=== PATIENT | female | born 1960 | race Two or more races ===

== ENCOUNTER 2020-03-03 16:42 | Emergency (ER) | payer SELFPAY ==
[~2020-03-03] VITALS: Ht 160 cm; Wt 55.0 kg
[2020-03-03 16:50] VITALS: BP 166/81
--- NOTE | 2020-03-03 17:55 | RAD ---
Exam performed: One view chest. Indication: Reason: cough / Spl. Instructions: / History: Date of Service: 03/03/2020 5:18 PM Comparison: None available none available. Single AP upright portable view chest findings: Cardiomediastinal silhouette is within limits of normal. No acute infiltrates, effusion or pneumothorax is detected. The bony structures are normal. Impression: No acute cardiopulmonary process is detected. Electronically signed by: Dora Gong MD (03/03/2020 5:52 PM) [facility]
--- NOTE | 2020-03-03 18:11 | PHYS DOC ---
Past Medical History Past Medical History: Asthma, Hypothyroid Past Surgical History: Appendectomy, Hysterectomy Smoking Status: Never Smoker Alcohol Use: None General Adult EDM: Chief Complaint: ASTHMA HPI: HPI: 60 yo F PMH asthma and hypothyroidism is the ED with her son with complaints of worsening shortness of breath, wheezing, nonproductive cough and chest tightness for the past 4 days. Has used her albuterol inhaler 6 times in the past week. Moved here from [place] a year and a half ago. States she was around bleach earlier today and thinks that worsened her asthma. Last except asthma exacerbation was 3 months ago that required steroids, no hospitalization. Is never been intubated. Is not a smoker. On no home oxygen. Only takes albuterol, no steroid inhaler. Is requesting medication refill. Tested for covid 3 weeks ag o. ROS: No associated fever, chills, leg swelling, rash, hemoptysis, chest pain, n/v/d/c, back pain, joint pain, headache, neck stiffness, syncope. Review of Systems: Review of Systems: Constitutional: Denies fever or chills. [] Eyes: Denies change in visual acuity. [] HENT: Denies nasal congestion or sore throat. [] Cardiovascular: Denies edema. [] GI: Denies abdominal pain, nausea, vomiting, bloody stools or diarrhea. [] : Denies dysuria. [] Musculoskeletal: Denies back pain or joint pain. [] Integument: Denies rash. [] Neurologic: Denies headache, focal weakness or sensory changes. [] Endocrine: Denies polyuria or polydipsia. [] Lymphatic: Denies swollen glands. [] Psychiatric: Denies depression or anxiety. [] Heart Score: Risk Factors: Risk Factors: DM, Current or recent (<one month) smoker, HTN, HLP, family history of CAD, obesity. Risk Scores: Score 0 - 3: 2.5% MACE over next 6 weeks - Discharge Home Score 4 - 6: 20.3% MACE over next 6 weeks - Admit for Clinical Observation Score 7 - 10: 72.7% MACE over next 6 weeks - Early Invasive Strategies Allergies: Allergies: Allergies Coded Allergies Type Severity Reaction Last Updated Verified cefazolin Allergy Severe 03/03/20 Yes shrimp Allergy Unknown 03/03/20 Yes Physical Exam: PE: Constitutional: Well developed, well nourished, no acute distress, non-toxic appearance. [] HENT: Normocephalic, atraumatic, bilateral external ears normal, oropharynx moist, no oral exudates, nose normal. [] Eyes: EOMI, conjunctiva normal, no discharge. [] Neck: Normal range of motion, no tenderness, supple, no stridor. [] Cardiovascular:Heart rate regular rhythm, no murmur [] Lungs & Thorax: Bilateral breath sounds equal, some expiratory wheezing, speaking in full sentences, 100% ra, no tachypnea or stridor Abdomen: Bowel sounds normal, soft, no tenderness, no masses, no pulsatile masses. [] Skin: Warm, dry, no erythema, no rash. [] Back: No tenderness, no CVA tenderness. [] Extremities: No tenderness, no cyanosis, no clubbing, ROM intact, no edema. [] Neurologic: Alert and oriented X 3, normal motor function, normal sensory function, no focal deficits noted. [] Psychologic: Affect normal, judgement normal, mood normal. [] Current Patient Data: Vital Signs: Vital Signs Date Time Temp Pulse Resp B/P (MAP) Pulse Ox O2 Delivery O2 Flow Rate FiO2 03/03/20 16:50 98.7 95 16 166/81 (109) 95 Room Air 98.7 EKG: EKG: [] Radiology/Procedures: Radiology/Procedures: IMAGING REPORT Signed PATIENT: BRAEDEN ONEALACCOUNT: [id number] : 1960 LOCATION: ER AGE: 60 SEX: F EXAM STATUS: REG ER ORD. PHYSICIAN: LATIA MCKNIGHT DO REASON: cough PROCEDURE: CHEST AP ONLY Exam performed: One view chest. Indication: Reason: cough / Spl. Instructions: / History: Date of Service: 03/03/2020 5:18 PM Comparison: None available none available. Single AP upright portable view chest findings: Cardiomediastinal silhouette is within limits of normal. No acute infiltrates, effusion or pneumothorax is detected. The bony structures are normal. Impression: No acute cardiopulmonary process is detected. Electronically signed by: Dora Gong MD (03/03/2020 5:52 PM) [facility] DICTATED and SIGNED BY: DORA GONG MD DATE: 03/03/20 3809 Course & Med Decision Making: Course & Med Decision Making Pertinent Labs and Imaging studies reviewed. (See chart for details) Concern for mild asthma exacerbation, requesting medication refill. Will prescribe prednisone for 5 days, albuterol as needed and Flovent for the next 30 days. Strict ED return precautions were given for increased work of breathing, accessory muscle use or requiring albuterol every 2 hours. Encouraged urgent outpatient follow-up with PMD and pulmonology. Life-threatening processes were considered but are low suspicion at this time, given history and physical exam. Pt was educated on all prescription medications and adverse effects. All patient's questions were answered and pt was stable at time of discharge. Differential includes acute myocardial infarction, aortic dissection, congestive heart failure, esophageal injury including rupture, surgical abdomen, arrhyt hmia, cardiomyopathy, myocarditis, pericarditis, peptic ulcer disease, pneumomediastinum, pneumonia, pneumothorax, pulmonary embolus, unstable angina, rib fracture, contusion, pericardial tamponade or effusion, pulmonary contusion I spoken with the patient and her caregivers. I explained the patient's condition, diagnoses and treatment plan based on the information available to me at this time. I have answered the patient and her caregiver's questions and addressed any concerns. The patient and her caregivers have a good understanding of patient's diagnosis, condition and treatment plan as can be expected at this point. Vital signs have been stable. Patient's condition is stable and appropriate for discharge from the emergency department. Patient will pursue further outpatient evaluation with primary care physician or other designated or consulting physician as outlined in the discharge instructions. The patient and/or caregivers are agreeable to this plan of care and follow-up instructions have been explained in detail. The patient and/or caregivers have received these instructions in written form and have expressed an understanding of the discharge instructions. The patient and/or caregivers are aware that any significant change of condition or worsening of symptoms should prompt immediate return to this or the closest emergency department or call to 911. Wilmer Disclaimer: Wilmer Disclaimer: This electronic medical record was generated, in whole or in part, using a voice recognition dictation system. Departure Departure Impression: Primary Impression: Asthma Additional Impression: Encounter for medication refill Disposition: HOME, SELF-CARE Condition: STABLE Referrals: NO PCP (PCP) Patient Instructions: Asthma Prevention-Brief, Asthma, Adult Additional Instructions: Mireya Norwood MD Family Medicine Address: [address], [address] [place] [address] Waldo Flood MD [facility] Address: [address] [place] [address] Scripts Albuterol Sulfate (VENTOLIN HFA INHALER) 18 Gm Hfa.aer.ad 2 PUFF INH QID PRN for WHEEZING, #1 INHALER 0 Refills Prov: LATIA MCKNIGHT DO 03/03/20 Fluticasone Propionate (FLOVENT 44MCG HFA) 10.6 Gm Aer.w.adap 2 PUFF IH BID for 30 Days, #10.6 GM 2 Refills Prov: LATIA MCKNIGHT DO 03/03/20 Albuterol Sulfate (ALBUTEROL SULFATE NEB SOLN) 2.5 Mg/3 Ml Vial.neb 1 VIAL NEB Q6HRS PRN for SHORTNESS OF BREATH, #25 VIAL Prov: LATIA MCKNIGHT DO 03/03/20 Prednisone (PREDNISONE) 20 Mg Tablet 2 TAB PO DAILY for 5 Days, #10 TAB Prov: LATIA MCKNIGHT DO 03/03/20 Justicifation of Admission Dx: Justifications for Admission: Justification of Admission Dx: N/A LATIA MCKNIGHT DO Mar 03, 2020 18:11
[2020-03-03] MEDS ORDERED: PRED20TA PO (18:15)
[2020-03-03] MEDS ORDERED: FLUT10.6 IH (18:15)
[2020-03-03] MEDS ORDERED: ALBU2.5V5 NEB (18:15)
[2020-03-03] MEDS ORDERED: VENTOLIN HFA18 GM INH (18:15)
== END 2020-03-03 18:20 | disposition home or self-care (01) ==
LOC: ER 16:42
DX: J45.909 Unspecified asthma, uncomplicated (principal); R06.02 Shortness of breath; R05 Cough; R07.89 Other chest pain; E03.9 Hypothyroidism, unspecified; Z90.89 Acquired absence of other organs; Z90.710 Acquired absence of both cervix and uterus; Z91.013 Allergy to seafood; Z88.8 Allergy status to other drugs, medicaments and biological substances; Z76.0 Encounter for issue of repeat prescription
CPT/HCPCS: 71045; 99283